=== PATIENT | male | born 1970 | race Caucasian/White ===

== ENCOUNTER 2017-09-13 07:22 | Observation (INO) | payer BC ==
[2017-09-13] MEDS ORDERED: NS 1,000 ML IV ONE (07:29)
--- NOTE | 2017-09-13 07:48 | CPEKG ---
Heart Rate: 70 RR Interval: 857 P-R Interval: 152 QRSD Interval: 102 QT Interval: 388 QTC Interval: 419 P Redwood: 61 QRS Redwood: 8 T Wave Redwood: -16 EKG Severity - BORDERLINE ECG - EKG Impression: SINUS RHYTHM EKG Impression: BORDERLINE T ABNORMALITIES, INFERIOR LEADS Electronically Signed By: Joy Minor 13-Sep-2017 18:45:52
[2017-09-13 08:10] LABS: ADD DIFF? NO; ADD MORPH? NO; ADD SCAN? NO; ATYPICAL LYMPHOCYTE FLAG 10 (0-99); FRAGMENT RBC FLAG 0 (0-99); HEMATOCRIT 51.3 % (40.0-51.0); HEMOGLOBIN 17.8 g/dL (13.7-17.5); LEFT SHIFT FLG 0 (0-99); LIPEMIA HEMOLYSIS FLAG 90 (0-99); MEAN CELL HEMOGLOBIN CONCENTR. 34.7 g/dL (32.4-36.7); MEAN CELL VOLUME 89.4 fL (81.5-99.8); MEAN PLATELET VOLUME 10.4 fL (8.7-11.7); PLATELET CLUMPS FLAG 0 (0-99); PLATELET COUNT 151 10^3/uL (150-400); RED BLOOD CELL COUNT 5.74 10^6/uL (4.40-6.38); RED CELL DISTRIBUTION WIDTH 12.4 % (11.5-15.2)
[2017-09-13 08:18] LABS: INR 0.93 (0.83-1.16); PROTIME(PATIENT) 12.7 SEC (12.0-15.0)
[2017-09-13 08:19] LABS: APTT 30.3 SEC (23.0-38.0)
[2017-09-13] MEDS ORDERED: HEPARIN 10,000 UNIT/10 ML MDV ONE ×2 (08:22→10:00)
[2017-09-13] MEDS ORDERED: LIDOCAINE 1% 300 MG/30 ML SDV ONE (08:22)
[2017-09-13] MEDS ORDERED: ISOPROTERENOL HCL/D5W 0.2 MG/50 ML BAG IV ONE (08:22)
[2017-09-13] MEDS ORDERED: BUPIVACAINE 0.5% 30 ML SDV ONE (08:22)
[2017-09-13] MEDS ORDERED: MIDAZOLAM 2 MG/2 ML VIAL IVP ONE (08:23)
--- NOTE | 2017-09-13 08:23 | PDANEPAE ---
ANE History of Present Illness here for SVT ablation ANE Past Medical History - Cardiovascular History Hx Hypertension: No Hx Arrhythmias: Yes Hx Chest Pain: No Hx Coronary Artery / Peripheral Vascular Disease: No Hx CHF / Valvular Disease: No Hx Palpitations: Yes - Pulmonary History Hx COPD: No Hx Recent Upper Respiratory Infection: No Hx Oxygen in Use at Home: No Hx Sleep Apnea: Yes - Neurologic History Hx Cerebrovascular Accident: No Hx Seizures: No Hx Dementia: No - Endocrine History Hx Diabetes: No Hypothyroid: No Hyperthyroid: No Obesity: mild - Renal History Hx Renal Disorders: No - Liver History Hx Hepatic Disorders: No - Neurological & Psychiatric Hx Hx Neurological and Psychiatric Disorders: No - Surgical History Prior Surgeries: acl. nose ANE Review of Systems Review of systems is: negative Review of Systems: - Exercise capacity Exercise capacity: >=4 METS ANE Patient History - Allergies Allergies/Adverse Reactions: amoxicillin Allergy (Verified 09/13/17 07:55) - Home Medications Home medications: home medication list seen and reviewed Home Medications: Anastrozole [Arimidex 1 mg (*)] 1 mg PO TU 09/13/17 [Last Taken 09/06/17] Ascorbic Acid [Vitamin C 500 mg (*)] 500 mg PO DAILY 09/13/17 [Last Taken Unknown] Aspirin [Aspirin 81mg (*)] 81 mg PO DAILY 09/13/17 [Last Taken 09/12/17] Cholecalciferol Vit D3 [Vitamin D3 (*)] 1,000 units PO DAILY 09/13/17 [Last Taken Unknown] Metoprolol Succinate Xr [Toprol Xl 25 mg (*)] 25 mg PO DAILY 09/13/17 [Last Taken 09/12/17] Multivitamins [Multivitamin (*)] 1 each PO DAILY 09/13/17 [Last Taken Unknown] Testosterone IM [Testosterone 100mg/ml IM inj (*)] 0.75 ml IM 09/13/17 [Last Taken 09/06/17] - NPO status NPO Status: no food or drink >8 hours - Smoking Hx Smoking Status: Never smoked ANE Labs/Vital Signs - Labs Result Diagrams: 09/13/17 08:00 09/13/17 08:00 - Vital Signs Vital Signs: reviewed preoperatively; see RN documention for details Height: 173 cm Weight: 104.3 kg ANE Physical Exam - Airway Neck exam: FROM Mallampati Score: Class 2 Mouth exam: normal dental/mouth exam - Pulmonary Pulmonary: no respiratory distress - Cardiovascular Cardiovascular: regular rate and rhythym - ASA Status ASA Status: II ANE Anesthesia Plan Anesthesia Plan: general endotracheal anesthesia
[2017-09-13] MEDS ORDERED: PROPOFOL/EMULSION 500 MG/50 ML BOTTLE IV ONE ×2 (08:33→10:31)
[2017-09-13 08:35] LABS: ANION GAP 10 mEq/L (8-16); CALCIUM 9.5 mg/dL (8.5-10.4); CARBON DIOXIDE 27 mEq/l (22-31); CHLORIDE 107 mEq/L (97-110); CREATININE 1.1 mg/dL (0.7-1.3); GLOMERULAR FILTRATION RATE > 60; GLUCOSE 98 mg/dL (70-100); MAGNESIUM 2.1 mg/dL (1.6-2.3); POTASSIUM 4.3 mEq/L (3.5-5.2); SODIUM 144 mEq/L (134-144)
[2017-09-13] MEDS ORDERED: fentaNYL 100 MCG/2 ML INJ ONE (08:37)
--- NOTE | 2017-09-13 08:43 | PDGENHP ---
History & Physical Chief Complaint: symptomatic svt History of Present Illness: symptomatic svt Relevant Physical Exam: s1s2 rrr. cta. ao3 Cardiorespiratory Assessment: symptomatic svt for ablation
[2017-09-13] MEDS ORDERED: PROPOFOL 200 MG/20 ML VIAL ONE (09:05)
[2017-09-13] MEDS ORDERED: HEPARIN/DEXTROSE 25,000 UNIT/500 ML BAG ONE (10:00)
[2017-09-13] MEDS ORDERED: PROTAMINE SULFATE 50 MG/5 ML VIAL IVP ONE (10:48)
[2017-09-13] MEDS ORDERED: ACETAMINOPHEN 325 MG TAB PO PRN (11:19)
[2017-09-13] MEDS ORDERED: ONDANSETRON 4 MG/2 ML VIAL IVP PRN (11:19)
[2017-09-13] MEDS ORDERED: ANASTROZOLE 1 MG TAB PO SCH (11:30)
--- NOTE | 2017-09-13 11:34 | EPPROC ---
Electrophysiology Procedure Note: ELECTROPHYSIOLOGIC STUDY AND CATHETER MEDIATED ABLATION OF LEFT LATERAL ACCESSORY PATHWAY Procedures performed: 16822-04 EP evaluation with RA/RV/LA pace/record, with arrhythmia induction 39924-88 EP evaluation with RA/RV pace record, insert/reposition catheter, with arrhythmia induction 50394 Intracardiac catheter ablation, SVT arrhythmogenic focus 55210 3D mapping Fluoroscopy 73149 Intracardiac echocardiogram 52973-19 Transseptal puncture INDICATION: PROCEDURE: Catheters and anesthesia: The patient arrived in the Electrophysiology Laboratory in the fasting state. The right clavicular region, right groin, and left groin area were prepped and draped in the usual sterile manner. Anesthesiologist Dr. Sean Nesbitt administered general anesthesia. Appropriate non-invasive blood pressure, pulse oximetry and end-tidal CO2 monitoring was established. All catheters were placed percutaneously using the modified Seldinger technique , and advanced into position under fluoroscopic guidance. One #6 Namibian hexapolar non-deflectable electrode catheter was inserted into the right atrial appendage via the left femoral vein (2mm spacing; except the proximal ring which was 25cm from the tip used for unipolar recordings). One #7 Namibian deflectable octapolar electrode catheter was advanced to the His-bundle position via the left femoral vein (2mm spacing). One #7 [place] deflectable quadrapolar catheter was advanced to the anteroseptal right ventricle via the left femoral vein. One #7 [place]ian deflectable catheter with 10 pairs of electrodes was placed via the right femoral vein into the coronary sinus. Programmed stimulation of the right atrium, right ventricle and coronary sinus ( left atrium) was performed. Parahisian pacing demonstrated two patterns of retrograde atrial activation during His bundle capture and loss of His bundle capture. This demonstrated the presence of an accessory pathway ( 0230 oclock at the mitral annulus as seen in the GEORGIAN view). 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 Ventricular extrastimuli delivered during tachycardia during His bundle refractoriness advanced the next atrial activation with the same retrograde atrial activation sequence proving the tachycardia to be orthodromic AV reentrant tachycardia. In preparation for ablation of the left lateral accessory pathway a transeptal puncture was performed under fluoroscopic and hemodynamic guidance. Intracardiac echocardiography was used during the procedure. Mean left atrial pressure was 6 mm Hg mmHg. A SL1 sheath was inserted into the left atrium. The patient was administered IV heparin bolus and IV heparin continuous infusion prior to the transseptal puncture and the activated clotting time was maintained ~ 300 seconds during the remainder of the procedure. One #7 Namibian mapping catheter with a 4 mm tip electrode and a sensor for the Veasl0T mapping system was inserted into the SL1 sheath and advanced to the left atrium. Mapping was perfomed during V pacing. A sharp retrograde accessory pathway potential was recorded at 0230 oclock at the mitral annulus as seen in the GEORGIAN view. This preceded the earliest atrial activation by 12 ms. RF#1-3 was delivered to this site, however there was transient block with recurrence of AP conduction post ablation. RF#4 was delivered anterior to RF#1 site where AP potential preceded earliest atrial activation by 20 ms. RF#1 blocked conduction in the accessory pathway after 0.7 seconds of initiation of ablation. Additional RF 2-4 were delivered slightly anterior and posterior to RF1 site. Programmed stimulation from the RA, CS, right and leftventricle during the baseline state post ablation and during infusion of isoproterenol 2 and 4 mcg/ min confirmed that there was no conduction over the left posterolateral accessory pathway and no orthodromic AVRT could be induced. The catheters were removed. Long sheath was exchanged for short sheath. Protamine was administered. The patient was transferred to the cardiovascular holding area in stable condition. Vascular access sheaths were removed in the holding area. There were no apparent complications. Results: A. Spontaneous Intervals: Pre ablation SCL 800 ms AH 55 ms HV 40 ms Post ablation SCL 650 ms AH 50 ms HV 40 ms B. Antegrade AV kamron function (decremental pacing) Pre ablation FPERP 290 ms WBB CL 280 ms Post ablation FPERP 290 ms WBB CL 280 ms C. Retrograde AV kamron function (decremental pacing) Pre ablation FPERP 320 ms D. Accessory pathway function 1. A single AV accessory pathway was identified at the mitral annulus at 0230 oclock as seen in the GEORGIAN view. 2. The AV accessory pathway conducted in the retrograde direction. During ventricular pacing 1:1 conduction over the accessory pathway was maintained to a cycle length of 280 ms, block over the AP occurred at 270 ms. E. Arrhythmias: 1. Ventricular premature beats induced orthodromic AV reentrant tachycardia using the left lateral accessory AV pathway. Tachycardia cycle length: 290 ms AH interval 110 ms HV interval 50ms VA interval (His) 140 ms Shortest VA interval 90 ms at 0230 o clock mitral annulus CONCLUSIONS: 1. A single left lateral accessory pathway, which exhibited conduction in the antegrade and retrograde directions. 2. 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 3. Successful ablation of the left lateral accessory pathway with elimination of AV reentrant tachycardia. 4. No apparent complications. Patient Problems: Problems Problem Status Onset Supraventricular tachycardia Acute
--- NOTE | 2017-09-13 11:54 | CPEKG ---
Heart Rate: 81 RR Interval: 741 P-R Interval: 164 QRSD Interval: 98 QT Interval: 376 QTC Interval: 437 P Dierks: 70 QRS Dierks: 29 T Wave Dierks: -42 EKG Severity - ABNORMAL ECG - EKG Impression: SINUS RHYTHM EKG Impression: NONSPECIFIC T ABNORMALITIES, INFERIOR LEADS EKG Impression: COMPARED WITH 09/13/2017 AT 7:47 A.M., NO SIGNIFICANT CHANGE Electronically Signed By: Joy Minor 13-Sep-2017 18:45:24
[2017-09-13 14:38] LABS: ANION GAP 8 mEq/L (8-16); CALCIUM 7.7 mg/dL (8.5-10.4); CARBON DIOXIDE 24 mEq/l (22-31); CHLORIDE 111 mEq/L (97-110); GLOMERULAR FILTRATION RATE > 60; GLUCOSE 80 mg/dL (70-100); MAGNESIUM 1.8 mg/dL (1.6-2.3); POTASSIUM 3.8 mEq/L (3.5-5.2); SODIUM 143 mEq/L (134-144)
--- NOTE | 2017-09-13 16:47 | POSTANESTH ---
Post Anesthetic Evaluation Cardiovascular Status: Normal, Stable Respiratory Status: Normal, Stable Level of Consciousness/Mental Status: Can Participate in Eval, Moderately Sleepy Pain Control: Adequate, Prn Tx Ordered Nausea/Vomiting Control: Adequate, Prn Tx Ordered Complications Possibly Related to Anesthesia: None Noted
[2017-09-14 05:54] LABS: % IMMATURE GRANULYOCYTES 0.4 % (0.0-1.1); ABSOLUTE IMMATURE GRANULOCYTES 0.03 10^3/uL (0.00-0.10); ADD DIFF? NO; ADD MORPH? NO; ADD SCAN? NO; ATYPICAL LYMPHOCYTE FLAG 10 (0-99); FRAGMENT RBC FLAG 0 (0-99); HEMATOCRIT 49.1 % (40.0-51.0); HEMOGLOBIN 16.5 g/dL (13.7-17.5); LEFT SHIFT FLG 0 (0-99); LIPEMIA HEMOLYSIS FLAG 80 (0-99); MEAN CELL HEMOGLOBIN 30.9 pg (27.9-34.1); MEAN CELL HEMOGLOBIN CONCENTR. 33.6 g/dL (32.4-36.7); MEAN CELL VOLUME 91.9 fL (81.5-99.8); MEAN PLATELET VOLUME 11.1 fL (8.7-11.7); PLATELET CLUMPS FLAG 0 (0-99); PLATELET COUNT 157 10^3/uL (150-400); RED BLOOD CELL COUNT 5.34 10^6/uL (4.40-6.38); RED CELL DISTRIBUTION WIDTH 12.3 % (11.5-15.2)
[2017-09-14 06:03] LABS: INR 0.94 (0.83-1.16); PROTIME(PATIENT) 12.8 SEC (12.0-15.0)
[2017-09-14 06:37] LABS: ANION GAP 10 mEq/L (8-16); CALCIUM 9.2 mg/dL (8.5-10.4); CARBON DIOXIDE 29 mEq/l (22-31); CHLORIDE 105 mEq/L (97-110); CREATININE 1.2 mg/dL (0.7-1.3); GLOMERULAR FILTRATION RATE > 60; GLUCOSE 91 mg/dL (70-100); SODIUM 144 mEq/L (134-144)
[2017-09-14 06:46] LABS: CREATINE KINASE-MB FRACTION 2.07 ng/mL (0.00-3.19); TROPONIN I 0.451 ng/mL (0.000-0.034)
[2017-09-14 08:24] VITALS: BP 136/74; PULSE 79; RESP 24; TEMP 98.4; O2SAT 94
--- NOTE | 2017-09-14 08:37 | CPEKG ---
Heart Rate: 70 RR Interval: 857 P-R Interval: 148 QRSD Interval: 96 QT Interval: 380 QTC Interval: 410 P Tynan: 56 QRS Tynan: 21 T Wave Tynan: -23 EKG Severity - ABNORMAL ECG - EKG Impression: SINUS RHYTHM EKG Impression: NONSPECIFIC T ABNORMALITIES, INFERIOR LEADS EKG Impression: COMPARED WITH 09/13/2017 AT 11:53 A.M., NO SIGNIFICANT CHANGE Electronically Signed By: Joy Minor 14-Sep-2017 09:45:30
[2017-09-14] MEDS ORDERED: ASPIRIN 325 MG TAB PO SCH (09:00)
--- NOTE | 2017-09-14 14:07 | ASDISCHSUM ---
Discharge Information Plan Status:Home with No Needs Medically Cleared to Leave:09/13/2017 Discharge Date:09/14/2017 11:02 AM CM D/C Disposition:Home, Routine, Self-Care ADT D/C Disposition:Home, Routine, Self-Care Projected Discharge Date:09/14/2017 11:02 AM Transportation at D/C:Family Discharge Delay Reason: Follow-Up Date:09/14/2017 11:02 AM Discharge Slot: Final Diagnosis: Placement Information Patient Contact Information Contact Name:SHELLEY Relationship: Address:[address] City:[facility] Phone: State/Zip Code:[place] [address] Email: Financial Information Financial Class:HMO and PPO Plans Primary Plan Desc: OUT OF STATE PPO Primary Plan Number:[id number] Secondary Plan Desc: Secondary Plan Number: Assessment Information Intervention Information
--- NOTE | 2017-09-14 18:28 | ECHO ---
[email or web address] [address] [address] Main: [phone] Fax: Transthoracic Echocardiogram Name: ALDAIR VALENCIA MR#: [id number] Study Date: 09/14/2017 Study Time: 09:37 AM Date of : 1970 Age: 47 year(s) Height: 172.7 cm (68 in.) Weight: 104.33 kg (230 lb.) BSA: 2.17 m2 Gender: Male Examination: Echo Indication: F/U post EP study Image Quality: Contrast: Requested by: Roc Atkins BP: 136 mmHg/74 mmHg Heart Rate: Rhythm: Indication: F/U post EP study Procedure Staff Telecommunications Field Technician: Maryann Trivedi Physician: Rolly Bray Requesting Provider: Conclusions: Normal size left ventricle. Normal global systolic LV function. EF is 74 %. Normal RV function. The left atrium is normal in size. No pericardial effusion. Measurements: Chambers Valvular Assessment AV/MV Valvular Assessment TV/PV Normal Normal Normal Name Value Range Name Value Range Name Value Range Ao Love (MM): 3.1 cm (2.2 cm-3.7 AV meanP mmHg ( - ) cm) MV E Vmax: 1.05 m/s ( - ) IVSd (2D): 0.9 cm (0.6 cm-1.1 MV A Vmax: 0.72 m/s ( - ) cm) MV E/A: 1.46 ( - ) LVDd (2D): 5.0 cm (4.2 cm-5.9 cm) LVDs (2D): 3.1 cm (2.1 cm-4 cm) LVPWd (2D): 1.0 cm (0.6 cm-1 cm) LVEF (MOD4): 74 % (>=55 %) Continued Measurements: Chambers Valvular Assessment AV/MV Name Value Name Value LADs: 3.6 cm MV E' Septal: 0.08 m/s LADs Lon.1 cm MV E/E' Septal: 13.00 LA Area: 15.2 cm2 MV E/E' Lateral: 11.20 Patient: ALDAIR VALENCIA Study Date: 09/14/2017 Page 1 of 2 09:37 AM Findings: Left Ventricle: Normal size left ventricle. No LV hypertrophy. Normal global systolic LV function. EF is 74 %. No regional wall motion abnormality. Normal diastolic LV function. Right Ventricle: Normal size right ventricle. Normal RV function. Left Atrium: The left atrium is normal in size. Right Atrium: The right atrium is normal in size. Mitral Valve: The mitral valve is normal in appearance and function. Trivial mitral valve regurgitation. Aortic Valve: The aortic valve is normal in appearance and function. Tricuspid Valve: The tricuspid valve is normal in appearance and function. Pulmonic Valve: The pulmonic valve is normal in appearance and function. Aorta: The aorta is normal. Pericardium: No pericardial effusion. (No Signature Object) Patient: ALDAIR VALENCIA Study Date: 09/14/2017 Page 2 of 2 09:37 AM D:_[id number]
--- NOTE | 2017-09-14 21:57 | GDS ---
[f rep st] DISCHARGE SUMMARY DISCHARGE DIAGNOSES: 1. Atrioventricular reentry tachycardia. 2. Ablation of left lateral accessory pathway. BRIEF HISTORY: This is a 47-year-old man who has had recent episodes of SVT lasting up to 4 hours. EKG from [facility] in [place] demonstrated SVT at 214 beats per minute. HOSPITAL COURSE: Dr. Atkins performed an EP study inducing orthodromic AV reentrant tachycardia . There was a single left lateral accessary pathway with conduction in antegrade and retrograde direction. Successful ablation of the left lateral accessary pathway with elimination of AV reentry tachycardia. Patient reports feeling well overnight and denies any symptoms of chest pain, pressure, tightness, shortness of breath, palpitations, or pain at his groin site. TESTING DONE: Echocardiogram: Pending official read. However, no evidence of pericardial effusion. 12-lead EKG: Sinus rhythm without ST-T wave changes. LAB WORK: WBC is 7.99 hemoglobin 16.5, hematocrit 49.1, platelets 151, sodium 144, potassium 5.0, chloride 105, bicarb 29, BUN 11, creatinine 1.2. Glucose 97. CK 120, CK-MB fraction 2.07, troponin is 0.451. PHYSICAL EXAM: VITAL SIGNS: Blood pressure is 124/70, pulse is 61, respirations 15, temperature 36.7, O2 saturation is 99% on 2 L. GENERAL: He is alert and oriented, sitting up in bed, in no acute distress. CARDIAC: Regular rate, rhythm, without murmur, rub, or gallop. LUNGS: Clear to auscultation. ABDOMEN: Soft and nontender. Groin sites are without bleeding or significant ecchymosis. No hematomas. LOWER EXTREMITIES: Warm. No discoloration. Bilateral pedal pulses +2. DISCHARGE INSTRUCTIONS: Postablation activity restrictions were reviewed with patient verbally, and he was given written instructions at discharge. DISCHARGE MEDICATIONS: Please see discharge medication reconciliation. Of note , he will continue with a full-dose aspirin for 6 weeks daily post ablation, and he is stopping metoprolol that he was taking just for the SVT. FOLLOWUP: He has a followup October 13 at 4:[address] Atkins. /[id number]/MODL MTDD
== END 2017-09-14 11:02 | disposition home or self-care (01) ==
LOC: FCATH 07:22 → F2W 11:19
PROVIDERS: ADMIT Internal Medicine Cardiovascular Disease; ATTEND Internal Medicine Cardiovascular Disease
DX: I47.1 Supraventricular tachycardia (principal); G47.30 Sleep apnea, unspecified; Z82.49 Family history of ischemic heart disease and other diseases of the circulatory system
CPT/HCPCS: 93005; 93306; 93613; 93621; 93623; 93653; 93662; C1730; C1893; G0378; C1731; C1732; C1759; J1644; J2250; J2704; J2720; J3010